=== PATIENT | female | born 1960 | race Caucasian/White ===

== ENCOUNTER 2017-03-02 09:55 | Inpatient (IN) | payer OTHER ==
[~2017-03-02] VITALS: Ht 154.9 cm; Wt 49.9 kg
[~2017-03-02 09:55] MED LIST: cefOXitin SODIUM 2 GM in D5W 100 ML IV ONE
[2017-03-02] MEDS ORDERED: ALVIMOPAN 12 MG CAPSULE PO ONE (10:09)
[2017-03-02] MEDS ORDERED: METOCLOPRAMIDE HCL 10 MG/2 ML VIAL ONE (14:00)
[2017-03-02] MEDS ORDERED: SEVOFLURANE 15 MIN GAS INH ONE (14:00)
[2017-03-02] MEDS ORDERED: ROCURONIUM BROMIDE 10 MG/ML (ZEMURON) ONE (14:00)
[2017-03-02] MEDS ORDERED: NS 1000 ML BAG IV ONE (14:00)
[2017-03-02] MEDS ORDERED: KETOROLAC TROMETHAMINE 30 MG VIAL ONE (14:00)
[2017-03-02] MEDS ORDERED: PROPOFOL 200MG/ 20ML VIAL (DIPRIVAN) IV ONE (14:00)
[2017-03-02] MEDS ORDERED: DEXAMETHASONE SOD PHOSPHATE 4 MG/ML VIAL ONE (14:00)
[2017-03-02] MEDS ORDERED: KETAMINE HCL 500 MG/10 ML VIAL ONE (14:00)
[2017-03-02] MEDS ORDERED: fentaNYL CITRATE 250 MCG/5 ML AMP ONE (14:00)
[2017-03-02] MEDS ORDERED: NS IRRIG SOLN 1000 ML IR ONE (14:00)
[2017-03-02] MEDS ORDERED: LR 1,000 ML IV.SOLN IV ONE (14:00)
[2017-03-02] MEDS ORDERED: MIDAZOLAM HCL 5 MG/5 ML VIAL ONE (14:00)
[2017-03-02] MEDS ORDERED: BUPIVACAINE /EPINEPHRINE/PF 0.25% 30 ML VIAL INJ ONE (14:00)
[2017-03-02] MEDS ORDERED: ONDANSETRON HCL 4 MG/2 ML VIAL ONE (14:00)
[2017-03-02] MEDS ORDERED: HYDROcodone/ACETAMIN 5-325 MG TAB (NORCO/ VICODIN) PO PRN ×2 (14:45)
[2017-03-02] MEDS ORDERED: ACETAMINOPHEN 325 MG TABLET PO PRN (14:45)
[2017-03-02] MEDS ORDERED: HYDROmorphone 1 MG INJ. 1 MG/ML AMPUL IVP PRN ×2 (14:45→15:00)
[2017-03-02] MEDS ORDERED: LR 1,000 ML IV SCH (14:59)
[2017-03-02] MEDS ORDERED: HYDROmorphone 2 MG/ML VIAL IVP PRN ×2 (15:00)
[2017-03-02] MEDS ORDERED: FAMOTIDINE PF 20 MG/2 ML VIAL ONE (15:09)
[2017-03-02] MEDS ORDERED: FAMOTIDINE PF 20 MG/2 ML VIAL IVP ONE (15:15)
[2017-03-02] MEDS ORDERED: HYDROmorphone 1 MG INJ. 1 MG/ML AMPUL ONE (15:18)
[2017-03-02 16:00] VITALS: BP_SYST 151
--- NOTE | 2017-03-02 16:00 | NUR ---
OR admission: Received 56 years old female from PACU via a bed . Patient is alert, oriented x4, complains of left neck and shoulder pain. 3 small abdominal surgical incisions are with dry dressing , no drainage. SCDs on both legs. LR IVF running manually from PACU via left FA # 18G, no sign of infiltration.
--- NOTE | 2017-03-02 16:20 | NUR ---
Apply warm compression to left shoulder for pain.
--- NOTE | 2017-03-02 16:47 | NUR ---
Re-assessment: Patient is sleeping comfortable, PP=90, RR=16, ML=528/73, Sat O2=96%.
[2017-03-02] MEDS: CEFAZOLIN 1 GM IVPB PREMIX 50 ML IV SCH ×2 (17:33→22:06)
[2017-03-02] MEDS: D5/0.45 NS 1,000 ML IV SCH (17:39)
--- NOTE | 2017-03-02 17:39 | NUR ---
IVF: START D5 1/2 NS IVF AT 100 ML/HR AND FIRST DOSE OF ZOSYN IVPB ORDERED.
[2017-03-02] MEDS ORDERED: FLU VACC QS 2016-17(36MOS+)/PF 0.5 ML/SYR SYRINGE I.M. PRN (18:00)
--- NOTE | 2017-03-02 18:00 | NUR ---
VOMITING: PATIENT HAS VOMITED, YELLOWISH GASTRIC CONTENT AFTER SIP SOME JUICE. SHE REFUSES TO GET ANY MEDICATION.
[2017-03-02 18:17] VITALS: BP_SYST 128
--- NOTE | 2017-03-02 19:08 | NUR ---
CLOSING NOTE: PATIENT IS STABLE, STILL NOT VOIDING AFTER SURGERY, ON D5 1/2 NS IVF AT 100 ML/HR. SCDs ARE ON BOTH LEGS.
[2017-03-02 20:00] VITALS: BP_SYST 98
--- NOTE | 2017-03-02 20:00 | NUR ---
Opening Note Report received from Anay RN. Patient is in stable condition currently resting in bed. IV, 18g, is on the LFA running D5NS@100ml/hr. Patient has three small surgical incisions covered with an occlusive dressing. All dressing are dry and intact. Sanchez catheter was discontinued in the PACU. Patient has yet to void. She is currently requesting for a warm pack for her shoulders. Will get an order from Dr. Tesfaye. Call light is within reach. Instructed to use it whenever in need of assistance. Bed is in low position.
--- NOTE | 2017-03-02 21:30 | NUR ---
Spoke with Spoke with Dr. Tesfaye. Obtained an order for a warm compress and for IS.
[2017-03-02] MEDS: FAMOTIDINE PF 20 MG/2 ML VIAL IVP SCH (21:32)
--- NOTE | 2017-03-02 22:00 | NUR ---
Rounds Assisted the patient to the restroom and back into bed. Call light is within reach.
[2017-03-03] MEDS: ONDANSETRON HCL 4 MG/2 ML VIAL IVP PRN ×2 (00:10→04:25)
[2017-03-03 00:13] VITALS: BP_SYST 148
--- NOTE | 2017-03-03 00:15 | NUR ---
Pain med Walked into the patient's room she stated that she just woke up with 10/10 pain on her shoulders. Medicated with Dilaudid 1mg. Will reassess.
--- NOTE | 2017-03-03 02:11 | NUR ---
Rounds Patient is currently resting in bed. Call light is within reach.
[2017-03-03 04:10] VITALS: BP_SYST 103
[2017-03-03] MEDS: D5/0.45 NS 1,000 ML IV SCH (04:28)
--- NOTE | 2017-03-03 04:35 | NUR ---
Pain med Medicated the patient with [place] 1 tab for 3/10 abdominal pain. Assisted the patient to the restroom and back in to bed. Call light is within reach. Instructed the patient to use it whenever in need of assistance.
--- NOTE | 2017-03-03 06:37 | NUR ---
Closing Note Patient is currently sleeping in bed. IV is on the LFA, 18g, running D5NS@100ml/hr. Abdominal incisions are dry and intact. Warm compress is at bed per patient's request. Patient has been using IS while awake. No signs of distress at the moment. Will give report to the oncoming nurse.
--- NOTE | 2017-03-03 07:32 | NUR ---
AM Rounds: Received pt laying flat in bed and sleeping. No acute signs of distress noted. IV intact to LUE with no redness or swelling noted to site. Call light in reach. Pt denies pain. Pt is able to verbalize understanding and make needs known. No other needs noted at this time. Continue to monitor.
[2017-03-03 08:07] VITALS: BP_SYST 110
[2017-03-03] MEDS: FAMOTIDINE PF 20 MG/2 ML VIAL IVP SCH (09:02)
--- NOTE | 2017-03-03 09:13 | NUR ---
RN Rounds/Page Dr. Garcia: AM meds given per MD order. No acute signs of distress noted at this time. Pt tolerates meds well. Call light in reach. Pt able to return demonstrate IS at 1000mL inspired air. Pt verbalizes understanding of need to use IS 10x/hr while aware. No other needs noted at this time. SCDs in place. Dr. Garcia paged to make him aware that pt is in the hospital per Dr. Tesfaye's orders. Continue to monitor pt closely.
--- NOTE | 2017-03-03 11:33 | NUR ---
Nutrition Update Sam Scale 16 noted. Pt admitted for L upper quadrant abd swelling, mass. Diet: soft (low fiber/bland) BMI: 20.8 kg/m2 RD to follow per nutrition care standards.
--- NOTE | 2017-03-03 11:35 | NUR ---
Rounds: Pt sitting up in bed. No acute signs of distress noted. IV intact to RUE. Pt denies pain. Dr. Tesfaye here to see patient, new orders noted. Ok to discharge patient home.
[2017-03-03] MEDS ORDERED: HYDR-1189 PO (11:50)
[2017-03-03 11:52] VITALS: BP_SYST 98
[2017-03-03 12:43] VITALS: BP_SYST 98
--- NOTE | 2017-03-03 13:00 | NUR ---
D/C Patient Patient given medication reconciliation form and D/C instructions. Exit Care provided. Patient verbalized understanding. MD discussed with patient the results and treatment provided. Ambulatory with steady gait for discharge to home. Patient in stable condition, ID band removed. IV catheter removed, intact and dressing applied, no active bleeding. Rx given. Patient educated on pain management, need to follow up with Dr. Tesfaye in 2 weeks, ok to shower in the morning and remove outer dressing Abdominal binder in place. All belongings sent with patient.
--- NOTE | 2017-03-03 16:36 | NUR ---
DC Planning SLIP OPERATOR faxed discharge home order to Tarsha at [facility], .
== END 2017-03-03 13:00 | disposition home or self-care (01) | DRG 407 ==
LOC: SMU 09:55 → EDSTATUS 11:45 → SMU 15:57
PROVIDERS: ADMIT Colon & Rectal Surgery; ATTEND Colon & Rectal Surgery
PROC: 0F9 Hepatobiliary System and Pancreas, Drainage (ICD-10-PCS; 2017-03-02)
PROC: 0FB24ZZ Excision of Left Lobe Liver, Percutaneous Endoscopic Approach (ICD-10-PCS; principal; 2017-03-02 11:45)
DX: K76.89 Other specified diseases of liver (principal); K21.9 Gastro-esophageal reflux disease without esophagitis; Z88.6 Allergy status to analgesic agent; Z90.49 Acquired absence of other specified parts of digestive tract; Z82.61 Family history of arthritis; Z82.49 Family history of ischemic heart disease and other diseases of the circulatory system; Z84.89 Family history of other specified conditions
CPT/HCPCS: 87081; 88305; 88307; 94760; C1727; J0690; J0694; J1100; J1170; J1885; J2250; J2405; J2704; J2765; J3010; J3490; J7030; J7060; J7120

== ENCOUNTER 2017-03-06 06:25 | Inpatient (IN) | payer OTHER ==
[~2017-03-06] VITALS: Ht 152.4 cm; Wt 49.9 kg
[~2017-03-06 06:25] MED LIST changes: +HYDR-1189 PO; -cefOXitin SODIUM 2 GM in D5W 100 ML IV ONE
[2017-03-06 06:35] VITALS: BP_SYST 142
[2017-03-06] MEDS ORDERED: NACL 0.9% 1,000 ML IV ONE ×2 (06:52→08:15)
[2017-03-06] MEDS ORDERED: MORPHINE 4 MG/ML INJ. SYRINGE IVP ONE (07:00)
[2017-03-06] MEDS ORDERED: ONDANSETRON HCL 4 MG/2 ML VIAL IVP ONE (07:00)
[2017-03-06] MEDS ORDERED: DIPHENHYDRAMINE INJ 50 MG/ML VIAL IVP ONE (07:00)
[2017-03-06 07:15] LABS: BASOPHILS % (AUTO) 0.3 % (0.0-2.0); EOSINOPHILS # (AUTO) 0.3 K/uL (0.0-0.4); EOSINOPHILS % (AUTO) 4.1 % (0.0-4.0); HEMATOCRIT 37.8 % (36-48); HEMOGLOBIN 13.1 g/dL (12.0-16.0); LYMPHOCYTES # (AUTO) 1.6 K/uL (1.0-5.5); LYMPHOCYTES % (AUTO) 20.9 % (20.5-51.5); MEAN CORPUSCULAR HEMOGLOBIN 30 pg (27-31); MEAN CORPUSCULAR HGB CONC 35 % (32-36); MEAN CORPUSCULAR VOLUME 87 fL (79.0-98.0); MONOCYTES # (AUTO) 0.3 K/uL (0.0-1.0); MONOCYTES % (AUTO) 3.8 % (1.7-9.3); NEUTROPHILS # (AUTO) 5.6 K/uL (1.8-7.7); NEUTROPHILS % (AUTO) 70.9 % (40.0-70.0); PLATELET COUNT (AUTO) 198 K/uL (130-430); RED BLOOD CELL COUNT(AUTO) 4.36 MIL/uL (4.2-6.2); RED CELL DISTRIBUTION WIDTH 12.7 % (9.0-15.0); WHITE BLOOD COUNT (AUTO) 7.8 K/uL (4.8-10.8)
[2017-03-06 07:25] LABS: INR 0.9 (0.8-1.2); PROTHROMBIN TIME 10.2 SECS (9.5-12.5)
[2017-03-06 07:28] LABS: CALCIUM 9.3 mg/dL (8.4-11.0); CREATININE 0.78 mg/dL (0.55-1.30); POTASSIUM 3.7 mmol/L (3.5-5.1)
[2017-03-06 07:34] LABS: ALBUMIN 3.8 g/dL (3.4-4.8); TOTAL BILIRUBIN 0.5 mg/dL (0.0-1.0); TOTAL PROTEIN, SERUM 7.1 g/dL (6.4-8.3)
[2017-03-06] MEDS ORDERED: IOHEXOL 100 ML IV ONE (07:46)
[2017-03-06] MEDS: NACL 0.9% 1,000 ML IV SCH ×3 (08:42→20:09)
[2017-03-06] MEDS ORDERED: MORPHINE 2 MG/ML INJ. SYRINGE IVP PRN (08:45)
[2017-03-06] MEDS ORDERED: ONDANSETRON HCL 4 MG/2 ML VIAL IVP PRN (08:45)
[2017-03-06] MEDS ORDERED: HYDROcodone/ACETAMIN 5-325 MG TAB (NORCO/ VICODIN) PO PRN (08:45)
[2017-03-06] MEDS: ENOXAPARIN SODIUM 40 MG/0.4 ML SYRINGE SUBCUT SCH (09:00)
[2017-03-06 09:08] VITALS: BP_SYST 127
[2017-03-06 09:15] LABS: BILIRUBIN,URINE NEGATIVE (NEGATIVE); BLOOD, URINE NEGATIVE (NEGATIVE); CLARITY/URINE CLEAR (CLEAR); COLOR,URINE YELLOW (YELLOW); GLUCOSE,URINE NEGATIVE (NEGATIVE); KETONES,URINE NEGATIVE (NEGATIVE); LEUKOCYTE ESTERASE ,URINE NEGATIVE (NEGATIVE); NITRITE, URINE NEGATIVE (NEGATIVE); PROTEIN URINE NEGATIVE (NEGATIVE); UROBILINOGEN,URINE 0.2 (0.2-1.0)
[2017-03-06 12:00] VITALS: BP_SYST 120
[2017-03-06] MEDS ORDERED: LIDOCAINE VISCOUS 2%, 15 ML UDC MM PRN (12:15)
[2017-03-06] MEDS ORDERED: HYDROmorphone 1 MG INJ. 1 MG/ML AMPUL IVP PRN (12:15)
[2017-03-06] MEDS ORDERED: HYDROmorphone 1 MG INJ. 1 MG/ML AMPUL ONE (12:37)
[2017-03-06] MEDS: BELLADONNA ALKALOIDS/PHENOBARB 5 ML UDC GT PRN (14:13)
[2017-03-06] MEDS: HYDROmorphone 1 MG INJ. 1 MG/ML AMPUL IVP PRN ×2 (15:19→20:31)
[2017-03-06 15:57] VITALS: BP_SYST 124; BP_SYST 125
[2017-03-06 19:35] VITALS: BP_SYST 137
[2017-03-06] MEDS: FAMOTIDINE PF 20 MG/2 ML VIAL IVP SCH (20:38)
[2017-03-06 22:20] LABS: BILIRUBIN,URINE NEGATIVE (NEGATIVE); BLOOD, URINE NEGATIVE (NEGATIVE); CLARITY/URINE CLEAR (CLEAR); COLOR,URINE YELLOW (YELLOW); GLUCOSE,URINE NEGATIVE (NEGATIVE); KETONES,URINE NEGATIVE (NEGATIVE); LEUKOCYTE ESTERASE ,URINE NEGATIVE (NEGATIVE); NITRITE, URINE NEGATIVE (NEGATIVE); PROTEIN URINE NEGATIVE (NEGATIVE); UROBILINOGEN,URINE 0.2 (0.2-1.0)
[2017-03-07] VITALS: BP_SYST 126
[2017-03-07] MEDS: NACL 0.9% 1,000 ML IV SCH ×5 (00:46→20:27)
[2017-03-07] MEDS: HYDROmorphone 1 MG INJ. 1 MG/ML AMPUL IVP PRN (03:29)
[2017-03-07] MEDS: ONDANSETRON HCL 4 MG/2 ML VIAL IVP PRN ×2 (03:44→22:40)
[2017-03-07 04:00] VITALS: BP_SYST 110
[2017-03-07 06:52] LABS: ALBUMIN 2.9 g/dL (3.4-4.8); CALCIUM 8.2 mg/dL (8.4-11.0); CREATININE 0.61 mg/dL (0.55-1.30); PHOSPHORUS 3.4 mg/dL (2.7-4.5); POTASSIUM 4.4 mmol/L (3.5-5.1); TOTAL PROTEIN, SERUM 5.9 g/dL (6.4-8.3)
[2017-03-07 06:56] LABS: BASOPHILS % (AUTO) 0.2 % (0.0-2.0); EOSINOPHILS # (AUTO) 0.2 K/uL (0.0-0.4); HEMATOCRIT 35.5 % (36-48); HEMOGLOBIN 12.1 g/dL (12.0-16.0); LYMPHOCYTES # (AUTO) 1.2 K/uL (1.0-5.5); LYMPHOCYTES % (AUTO) 16.1 % (20.5-51.5); MEAN CORPUSCULAR HEMOGLOBIN 30 pg (27-31); MEAN CORPUSCULAR HGB CONC 34 % (32-36); MEAN CORPUSCULAR VOLUME 88 fL (79.0-98.0); MONOCYTES # (AUTO) 0.6 K/uL (0.0-1.0); MONOCYTES % (AUTO) 7.5 % (1.7-9.3); NEUTROPHILS # (AUTO) 5.6 K/uL (1.8-7.7); NEUTROPHILS % (AUTO) 73.2 % (40.0-70.0); PLATELET COUNT (AUTO) 182 K/uL (130-430); RED BLOOD CELL COUNT(AUTO) 4.04 MIL/uL (4.2-6.2); RED CELL DISTRIBUTION WIDTH 12.7 % (9.0-15.0); WHITE BLOOD COUNT (AUTO) 7.6 K/uL (4.8-10.8)
[2017-03-07 08:00] VITALS: BP_SYST 122
[2017-03-07] MEDS: FAMOTIDINE PF 20 MG/2 ML VIAL IVP SCH ×2 (09:00→20:27)
[2017-03-07] MEDS: ENOXAPARIN SODIUM 40 MG/0.4 ML SYRINGE SUBCUT SCH (09:00)
[2017-03-07 12:42] VITALS: BP_SYST 130
[2017-03-07] MEDS: BELLADONNA ALKALOIDS/PHENOBARB 5 ML UDC GT PRN (14:23)
[2017-03-07] MEDS: MAG-AL HYDROX/SIMETH 30 ML UDC PO PRN (14:23)
[2017-03-07] MEDS ORDERED: KETOROLAC TROMETHAMINE 15 MG VIAL IVP PRN (14:45)
[2017-03-07] MEDS ORDERED: HYDROmorphone 1 MG INJ. 1 MG/ML AMPUL IVP PRN (14:45)
[2017-03-07 16:51] VITALS: BP_SYST 137
[2017-03-07 19:45] VITALS: BP_SYST 122
[2017-03-08 00:49] VITALS: BP_SYST 150
[2017-03-08] MEDS: NACL 0.9% 1,000 ML IV SCH ×6 (01:38→21:19)
[2017-03-08 04:49] VITALS: BP_SYST 124
[2017-03-08 07:04] LABS: BASOPHILS % (AUTO) 0.3 % (0.0-2.0); EOSINOPHILS # (AUTO) 0.2 K/uL (0.0-0.4); EOSINOPHILS % (AUTO) 2.3 % (0.0-4.0); HEMATOCRIT 31.8 % (36-48); HEMOGLOBIN 11.2 g/dL (12.0-16.0); LYMPHOCYTES # (AUTO) 1.1 K/uL (1.0-5.5); LYMPHOCYTES % (AUTO) 15.6 % (20.5-51.5); MEAN CORPUSCULAR HEMOGLOBIN 30 pg (27-31); MEAN CORPUSCULAR HGB CONC 35 % (32-36); MEAN CORPUSCULAR VOLUME 87 fL (79.0-98.0); MONOCYTES # (AUTO) 0.3 K/uL (0.0-1.0); MONOCYTES % (AUTO) 4.6 % (1.7-9.3); NEUTROPHILS # (AUTO) 5.7 K/uL (1.8-7.7); NEUTROPHILS % (AUTO) 77.2 % (40.0-70.0); PLATELET COUNT (AUTO) 169 K/uL (130-430); RED BLOOD CELL COUNT(AUTO) 3.68 MIL/uL (4.2-6.2); RED CELL DISTRIBUTION WIDTH 12.5 % (9.0-15.0); WHITE BLOOD COUNT (AUTO) 7.3 K/uL (4.8-10.8)
[2017-03-08 07:10] LABS: ALBUMIN 2.7 g/dL (3.4-4.8); CALCIUM 7.9 mg/dL (8.4-11.0); CREATININE 0.6 mg/dL (0.55-1.30); POTASSIUM 3.9 mmol/L (3.5-5.1); TOTAL PROTEIN, SERUM 5.7 g/dL (6.4-8.3)
[2017-03-08 08:00] VITALS: BP_SYST 121
[2017-03-08] MEDS: FAMOTIDINE PF 20 MG/2 ML VIAL IVP SCH ×2 (08:37→20:08)
[2017-03-08] MEDS: ENOXAPARIN SODIUM 40 MG/0.4 ML SYRINGE SUBCUT SCH (08:37)
[2017-03-08 12:00] VITALS: BP_SYST 125
[2017-03-08 16:01] VITALS: BP_SYST 121
[2017-03-08 20:00] VITALS: BP_SYST 127
[2017-03-09] MEDS: NACL 0.9% 1,000 ML IV SCH ×4 (01:40→19:05)
[2017-03-09 01:45] VITALS: BP_SYST 129
[2017-03-09 04:00] VITALS: BP_SYST 122
[2017-03-09 07:14] LABS: BASOPHILS % (AUTO) 0.2 % (0.0-2.0); EOSINOPHILS # (AUTO) 0.1 K/uL (0.0-0.4); EOSINOPHILS % (AUTO) 1.1 % (0.0-4.0); HEMATOCRIT 29.5 % (36-48); HEMOGLOBIN 10.3 g/dL (12.0-16.0); LYMPHOCYTES # (AUTO) 1.2 K/uL (1.0-5.5); LYMPHOCYTES % (AUTO) 14.6 % (20.5-51.5); MEAN CORPUSCULAR HEMOGLOBIN 30 pg (27-31); MEAN CORPUSCULAR HGB CONC 35 % (32-36); MEAN CORPUSCULAR VOLUME 85 fL (79.0-98.0); MONOCYTES # (AUTO) 0.4 K/uL (0.0-1.0); MONOCYTES % (AUTO) 5.6 % (1.7-9.3); NEUTROPHILS # (AUTO) 6.3 K/uL (1.8-7.7); NEUTROPHILS % (AUTO) 78.5 % (40.0-70.0); PLATELET COUNT (AUTO) 187 K/uL (130-430); RED BLOOD CELL COUNT(AUTO) 3.47 MIL/uL (4.2-6.2); RED CELL DISTRIBUTION WIDTH 12.5 % (9.0-15.0)
[2017-03-09 07:19] LABS: ALBUMIN 2.8 g/dL (3.4-4.8); CALCIUM 8.2 mg/dL (8.4-11.0); CREATININE 0.6 mg/dL (0.55-1.30); POTASSIUM 4.4 mmol/L (3.5-5.1); TOTAL BILIRUBIN 0.9 mg/dL (0.0-1.0)
[2017-03-09 08:00] VITALS: BP_SYST 126
[2017-03-09] MEDS ORDERED: LORazepam 2 MG/ML VIAL IVP ONE (08:45)
[2017-03-09] MEDS: FAMOTIDINE PF 20 MG/2 ML VIAL IVP SCH ×2 (08:51→21:00)
[2017-03-09] MEDS: ENOXAPARIN SODIUM 40 MG/0.4 ML SYRINGE SUBCUT SCH (08:51)
[2017-03-09 11:28] VITALS: BP_SYST 125
[2017-03-09 17:05] VITALS: BP_SYST 128
[2017-03-09 20:00] VITALS: BP_SYST 137
[2017-03-10 01:20] VITALS: BP_SYST 133
[2017-03-10 03:58] VITALS: BP_SYST 130
[2017-03-10] MEDS: NACL 0.9% 1,000 ML IV SCH ×5 (05:03→21:44)
[2017-03-10 06:57] LABS: ALBUMIN 2.9 g/dL (3.4-4.8); CALCIUM 7.9 mg/dL (8.4-11.0); CREATININE 0.46 mg/dL (0.55-1.30); POTASSIUM 3.2 mmol/L (3.5-5.1); TOTAL BILIRUBIN 0.8 mg/dL (0.0-1.0); TOTAL PROTEIN, SERUM 6.1 g/dL (6.4-8.3)
[2017-03-10 06:58] LABS: BASOPHILS % (AUTO) 0.3 % (0.0-2.0); EOSINOPHILS # (AUTO) 0.5 K/uL (0.0-0.4); EOSINOPHILS % (AUTO) 5.3 % (0.0-4.0); HEMATOCRIT 31.1 % (36-48); HEMOGLOBIN 10.8 g/dL (12.0-16.0); LYMPHOCYTES # (AUTO) 1.2 K/uL (1.0-5.5); LYMPHOCYTES % (AUTO) 13.8 % (20.5-51.5); MEAN CORPUSCULAR HEMOGLOBIN 30 pg (27-31); MEAN CORPUSCULAR HGB CONC 35 % (32-36); MEAN CORPUSCULAR VOLUME 86 fL (79.0-98.0); MONOCYTES # (AUTO) 0.6 K/uL (0.0-1.0); MONOCYTES % (AUTO) 6.9 % (1.7-9.3); NEUTROPHILS # (AUTO) 6.4 K/uL (1.8-7.7); NEUTROPHILS % (AUTO) 73.7 % (40.0-70.0); PLATELET COUNT (AUTO) 201 K/uL (130-430); RED BLOOD CELL COUNT(AUTO) 3.64 MIL/uL (4.2-6.2); RED CELL DISTRIBUTION WIDTH 12.5 % (9.0-15.0); WHITE BLOOD COUNT (AUTO) 8.7 K/uL (4.8-10.8)
[2017-03-10 08:00] VITALS: BP_SYST 130
[2017-03-10] MEDS: FAMOTIDINE PF 20 MG/2 ML VIAL IVP SCH ×2 (09:00→21:00)
[2017-03-10] MEDS ORDERED: MAG-AL HYDROX/SIMETH 30 ML UDC PO PRN (10:00)
[2017-03-10] MEDS ORDERED: MAG-AL HYDROX/SIMETH 30 ML UDC PO ONE (10:00)
[2017-03-10] MEDS ORDERED: PANTOPRAZOLE SODIUM 40 MG TAB PO ONE (10:30)
[2017-03-10] MEDS: ENOXAPARIN SODIUM 40 MG/0.4 ML SYRINGE SUBCUT SCH (10:43)
[2017-03-10] MEDS ORDERED: POTASSIUM CHLORIDE 40 MEQ in NS 250 ML IV ONE (11:00)
[2017-03-10 11:31] VITALS: BP_SYST 118
[2017-03-10 15:28] VITALS: BP_SYST 111
[2017-03-10 20:30] VITALS: BP_SYST 129
[2017-03-10] MEDS: MAG-AL HYDROX/SIMETH 30 ML UDC PO PRN (21:39)
[2017-03-11 00:55] VITALS: BP_SYST 131
[2017-03-11] MEDS: NACL 0.9% 1,000 ML IV SCH ×2 (02:39→07:15)
[2017-03-11 03:22] VITALS: BP_SYST 126
[2017-03-11 07:06] LABS: BASOPHILS % (AUTO) 0.3 % (0.0-2.0); EOSINOPHILS # (AUTO) 0.4 K/uL (0.0-0.4); EOSINOPHILS % (AUTO) 5.6 % (0.0-4.0); HEMATOCRIT 30.4 % (36-48); HEMOGLOBIN 10.3 g/dL (12.0-16.0); LYMPHOCYTES # (AUTO) 1.5 K/uL (1.0-5.5); MEAN CORPUSCULAR HEMOGLOBIN 30 pg (27-31); MEAN CORPUSCULAR HGB CONC 34 % (32-36); MEAN CORPUSCULAR VOLUME 87 fL (79.0-98.0); MONOCYTES # (AUTO) 0.5 K/uL (0.0-1.0); MONOCYTES % (AUTO) 7.8 % (1.7-9.3); NEUTROPHILS # (AUTO) 4.5 K/uL (1.8-7.7); NEUTROPHILS % (AUTO) 64.3 % (40.0-70.0); PLATELET COUNT (AUTO) 214 K/uL (130-430); RED BLOOD CELL COUNT(AUTO) 3.49 MIL/uL (4.2-6.2); RED CELL DISTRIBUTION WIDTH 12.3 % (9.0-15.0); WHITE BLOOD COUNT (AUTO) 6.9 K/uL (4.8-10.8)
[2017-03-11 07:44] LABS: ALBUMIN 2.7 g/dL (3.4-4.8); CALCIUM 8.1 mg/dL (8.4-11.0); CREATININE 0.55 mg/dL (0.55-1.30); POTASSIUM 3.1 mmol/L (3.5-5.1); TOTAL BILIRUBIN 0.6 mg/dL (0.0-1.0); TOTAL PROTEIN, SERUM 5.6 g/dL (6.4-8.3)
[2017-03-11 08:00] VITALS: BP_SYST 120
[2017-03-11] MEDS: FAMOTIDINE PF 20 MG/2 ML VIAL IVP SCH ×2 (09:00→21:00)
[2017-03-11] MEDS ORDERED: MAGNESIUM SULFATE 50 ML IV ONE (09:45)
[2017-03-11] MEDS ORDERED: POTASSIUM CHLORIDE 40 MEQ, LIDOCAINE JECT 2% PF 100 MG 50 MG in NS 250 ML IV ONE (09:45)
[2017-03-11] MEDS: PANTOPRAZOLE SODIUM 40 MG TAB PO SCH (10:50)
[2017-03-11] MEDS: ENOXAPARIN SODIUM 40 MG/0.4 ML SYRINGE SUBCUT SCH (10:51)
[2017-03-11 12:00] VITALS: BP_SYST 121
[2017-03-11 16:00] VITALS: BP_SYST 116
[2017-03-11 20:25] VITALS: BP_SYST 129
[2017-03-12 01:06] VITALS: BP_SYST 120
[2017-03-12 03:37] VITALS: BP_SYST 135
[2017-03-12 06:30] LABS: BASOPHILS % (AUTO) 0.4 % (0.0-2.0); EOSINOPHILS # (AUTO) 0.4 K/uL (0.0-0.4); EOSINOPHILS % (AUTO) 6.8 % (0.0-4.0); HEMATOCRIT 31.3 % (36-48); HEMOGLOBIN 10.6 g/dL (12.0-16.0); LYMPHOCYTES # (AUTO) 1.7 K/uL (1.0-5.5); LYMPHOCYTES % (AUTO) 30.2 % (20.5-51.5); MEAN CORPUSCULAR HEMOGLOBIN 29 pg (27-31); MEAN CORPUSCULAR HGB CONC 34 % (32-36); MEAN CORPUSCULAR VOLUME 87 fL (79.0-98.0); MONOCYTES # (AUTO) 0.4 K/uL (0.0-1.0); MONOCYTES % (AUTO) 6.5 % (1.7-9.3); NEUTROPHILS # (AUTO) 3.2 K/uL (1.8-7.7); NEUTROPHILS % (AUTO) 56.1 % (40.0-70.0); PLATELET COUNT (AUTO) 226 K/uL (130-430); RED BLOOD CELL COUNT(AUTO) 3.61 MIL/uL (4.2-6.2); RED CELL DISTRIBUTION WIDTH 12.9 % (9.0-15.0); WHITE BLOOD COUNT (AUTO) 5.8 K/uL (4.8-10.8)
[2017-03-12 06:56] LABS: CALCIUM 8.7 mg/dL (8.4-11.0); CREATININE 0.58 mg/dL (0.55-1.30); POTASSIUM 3.8 mmol/L (3.5-5.1); TOTAL BILIRUBIN 0.6 mg/dL (0.0-1.0); TOTAL PROTEIN, SERUM 6.3 g/dL (6.4-8.3)
[2017-03-12] MEDS: MAG-AL HYDROX/SIMETH 30 ML UDC PO PRN ×2 (07:46→21:38)
[2017-03-12] MEDS: FAMOTIDINE PF 20 MG/2 ML VIAL IVP SCH ×2 (09:00→21:00)
[2017-03-12] MEDS: PANTOPRAZOLE SODIUM 40 MG TAB PO SCH (09:27)
[2017-03-12] MEDS: ENOXAPARIN SODIUM 40 MG/0.4 ML SYRINGE SUBCUT SCH (09:27)
[2017-03-12] MEDS ORDERED: BISACODYL 10 MG/SUPPOSITORY RC ONE (09:30)
[2017-03-12 09:33] VITALS: BP_SYST 90
[2017-03-12 11:53] VITALS: BP_SYST 118
[2017-03-12 16:45] VITALS: BP_SYST 121
[2017-03-12 20:30] VITALS: BP_SYST 129
[2017-03-13 00:28] VITALS: BP_SYST 108
[2017-03-13 05:05] VITALS: BP_SYST 103
[2017-03-13 06:21] LABS: BASOPHILS % (AUTO) 0.4 % (0.0-2.0); EOSINOPHILS # (AUTO) 0.5 K/uL (0.0-0.4); EOSINOPHILS % (AUTO) 7.2 % (0.0-4.0); HEMATOCRIT 33.9 % (36-48); HEMOGLOBIN 11.2 g/dL (12.0-16.0); LYMPHOCYTES # (AUTO) 1.6 K/uL (1.0-5.5); LYMPHOCYTES % (AUTO) 22.6 % (20.5-51.5); MEAN CORPUSCULAR HEMOGLOBIN 29 pg (27-31); MEAN CORPUSCULAR HGB CONC 33 % (32-36); MEAN CORPUSCULAR VOLUME 87 fL (79.0-98.0); MONOCYTES # (AUTO) 0.4 K/uL (0.0-1.0); MONOCYTES % (AUTO) 5.9 % (1.7-9.3); NEUTROPHILS # (AUTO) 4.6 K/uL (1.8-7.7); NEUTROPHILS % (AUTO) 63.9 % (40.0-70.0); PLATELET COUNT (AUTO) 279 K/uL (130-430); RED BLOOD CELL COUNT(AUTO) 3.91 MIL/uL (4.2-6.2); RED CELL DISTRIBUTION WIDTH 12.7 % (9.0-15.0); WHITE BLOOD COUNT (AUTO) 7.1 K/uL (4.8-10.8)
[2017-03-13] MEDS: MAG-AL HYDROX/SIMETH 30 ML UDC PO PRN (06:29)
[2017-03-13 06:49] LABS: ALBUMIN 3.3 g/dL (3.4-4.8); CALCIUM 9.4 mg/dL (8.4-11.0); CREATININE 0.77 mg/dL (0.55-1.30); POTASSIUM 4.6 mmol/L (3.5-5.1); TOTAL BILIRUBIN 0.5 mg/dL (0.0-1.0); TOTAL PROTEIN, SERUM 6.8 g/dL (6.4-8.3)
[2017-03-13 08:00] VITALS: BP_SYST 134
[2017-03-13] MEDS: PANTOPRAZOLE SODIUM 40 MG TAB PO SCH (08:12)
[2017-03-13] MEDS: ENOXAPARIN SODIUM 40 MG/0.4 ML SYRINGE SUBCUT SCH (08:12)
[2017-03-13] MEDS: FAMOTIDINE PF 20 MG/2 ML VIAL IVP SCH (09:00)
[2017-03-13 12:41] VITALS: BP_SYST 134
[2017-03-13 13:14] VITALS: BP_SYST 107
== END 2017-03-13 10:00 | disposition home or self-care (01) | DRG 440 ==
LOC: SED 06:25 → SMU 08:29
PROVIDERS: ADMIT Internal Medicine; ATTEND Internal Medicine
DX: K85.90 Acute pancreatitis without necrosis or infection, unspecified (principal); K76.89 Other specified diseases of liver; Z88.5 Allergy status to narcotic agent; Z79.899 Other long term (current) drug therapy
CPT/HCPCS: 36415; 74181; 80053; 81003; 82150-TC; 83690-TC; 83735-TC; 84100-TC; 85025; 85610-TC; 87081; 87230-TC; 96361; 96374; 96375; 99285; J1170; J1200; J1650; J1885; J2001; J2060; J2270; J2405; J3475; J3480; J3490; J7030; J7050; J7120; Q9967